=== PATIENT | male | born 1990 | race Caucasian/White ===

== ENCOUNTER 2022-04-04 10:08 | Emergency (ER) | payer SELFPAY ==
[2022-04-04 10:16] VITALS: BP 138/88; PULSE 83; RESP 18; TEMP 98
--- NOTE | 2022-04-04 11:18 | ED ---
ENT HPI - General Chief complaint: Dental/Oral Stated complaint: Ear/Tooth pain Time Seen by Provider: 04/04/22 10:21 Source: patient Mode of arrival: ambulatory Limitations: no limitations - History of Present Illness Initial comments: Patient is a 32-year-old male who presents to the emergency department with a chief complaint of tooth pain. Patient states his filling came out several months ago and did not cause him pain until today when he was chewing gum. Patient reports severe upper left tooth pain refractory to Motrin. He denies fever, chills, swelling, jaw pain, neck pain, and pain around the ear. Patient states he just got insurance and it will be active next week so he will be able to follow with a dentist. - Related Data Allergies Allergy/AdvReac Type Severity Reaction Status Date / Time No Known Allergies Allergy Verified 04/04/22 10:16 Review of Systems ROS Statement: Those systems with pertinent positive or pertinent negative responses have been documented in the HPI. ROS Other: All systems not noted in ROS Statement are negative. Past Medical History Past Medical History: No Reported History Past Surgical History: No Surgical Hx Reported Past Psychological History: No Psychological Hx Reported Smoking Status: Current some day smoker Past Alcohol Use History: Occasional Past Drug Use History: None Reported General Exam Limitations: no limitations General appearance: alert, in no apparent distress Head exam: Present: atraumatic, normocephalic, normal inspection Eye exam: Present: normal appearance, PERRL, EOMI. Absent: scleral icterus, conjunctival injection, periorbital swelling ENT exam: Present: mucous membranes moist, TM's normal bilaterally, normal external ear exam, other (dental cavity at tooth #15 without surrounding gingiva erythema or swelling) Neck exam: Present: normal inspection Respiratory exam: Present: normal lung sounds bilaterally. Absent: respiratory distress, wheezes, rales, rhonchi, stridor Cardiovascular Exam: Present: regular rate, normal rhythm, normal heart sounds. Absent: systolic murmur, diastolic murmur, rubs, gallop, clicks Neurological exam: Present: alert, oriented X3, CN II-XII intact Psychiatric exam: Present: normal affect, normal mood Skin exam: Present: warm, dry, intact, normal color. Absent: rash Course Vital Signs 04/04/22 10:14 Temperature 98.0 F Pulse Rate 83 Respiratory 18 Rate Blood Pressure 138/88 O2 Sat by Pulse 99 Oximetry Medical Decision Making - Medical Decision Making This is a 32-year-old male who presents with left upper tooth pain. Thorough history and examination were performed. There is a dental cavity at tooth #15 without surrounding gingiva erythema or swelling. At this time there does not appear to be any tooth infection however patient severe pain I'll treat patient with antibiotic as prophylaxis or possibly early infection. Patient will be sent home with [place] for severe pain. He is instructed to follow-up with his dentist as planned when his insurance is active. Patient advised to use mouthwash and to avoid chewing on the affected side. Return parameters discussed. Patient verbalizes understanding and is agreeable to this plan. Dr. Del Toro is my attending. Disposition Clinical Impression: Pain, dental Disposition: HOME SELF-CARE Condition: Good Instructions (If sedation given, give patient instructions): Toothache (ED) Additional Instructions: Please take medication as directed. You may also take anti-inflammatories such as Motrin for pain. Follow-up with your dentist as planned. Return to the emergency department if you experience new, concerning, or worsening symptoms. Is patient prescribed a controlled substance at d/c from ED?: Yes If prescribed controlled substance>3 days was MAPS reviewed?: Yes Referrals: None,Stated [Primary Care Provider] - 1-2 days Time of Disposition: 11:17
== END 2022-04-04 11:22 | disposition home or self-care (01) ==
LOC: EC 10:08
DX: K08.89 Other specified disorders of teeth and supporting structures (principal); F17.200 Nicotine dependence, unspecified, uncomplicated
CPT/HCPCS: 99282

== ENCOUNTER 2023-08-23 10:26 | Emergency (ER) | payer SELFPAY ==
--- NOTE | 2023-08-23 10:50 | ED ---
Arrhythmia/Palpitations HPI - General Chief Complaint: Arrhythmia/Palpitations Stated Complaint: Palpitations Time Seen by Provider: 08/23/23 10:35 Source: patient Mode of arrival: ambulatory Limitations: no limitations - History of Present Illness Initial Comments: The patient is a 33-year-old gentleman is otherwise healthy presents emergency room with complaints of intermittent palpitations over the last week. Patient states he has been under a lot more stress at work recently. He denies any history of anxiety. The patient states that when he feels the palpitations it causes him to feel more anxious. Patient was seen under urgent care 3 days ago for the palpitations and was given Atarax. He states that this does help the palpitations started. The patient is very anxious and concerned there is something wrong with his blood work that is causing the palpitations. He states that he has had intermittent alcohol the evening prior to the palpitations however it was never aggressive and he has since stopped drinking over the last 6 days. He states he vapes and had occasionally smoke marijuana however has not smoked marijuana in a week. He states he is eating okay and drinking a lot of water. 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 he dnies any pain or shortness of breath. he denies any swelling of the extremities, hemoptysis or fevers. - Related Data Home Medications Medication Instructions Recorded Confirmed Amoxicillin 875 mg PO Q12H 08/23/23 08/23/23 hydrOXYzine HCL [Atarax] 25 mg PO TID PRN 08/23/23 08/23/23 Allergies Allergy/AdvReac Type Severity Reaction Status Date / Time No Known Allergies Allergy Verified 08/23/23 11:18 Review of Systems ROS Statement: Those systems with pertinent positive or pertinent negative responses have been documented in the HPI. ROS Other: All systems not noted in ROS Statement are negative. Past Medical History Past Medical History: No Reported History Past Surgical History: No Surgical Hx Reported Past Psychological History: No Psychological Hx Reported Smoking Status: Current some day smoker Past Alcohol Use History: Occasional Past Drug Use History: None Reported General Exam Limitations: no limitations General appearance: alert, in no apparent distress Head exam: Present: atraumatic Eye exam: Present: normal appearance ENT exam: Present: normal exam Neck exam: Present: normal inspection Respiratory exam: Present: normal lung sounds bilaterally Cardiovascular Exam: Present: regular rate, normal rhythm GI/Abdominal exam: Present: soft Extremities exam: Present: full ROM Back exam: Present: full ROM Neurological exam: Present: alert, oriented X3, CN II-XII intact Psychiatric exam: Present: normal affect, normal mood Skin exam: Present: warm, dry Course Vital Signs 08/23/23 08/23/23 08/23/23 10:29 10:40 10:41 Temperature 98.4 F Pulse Rate 71 Pulse Rate [ 87 Operation Research Analyst ] Respiratory 18 Rate Blood Pressure 136/78 O2 Sat by Pulse Oximetry 08/23/23 08/23/23 08/23/23 10:51 11:30 12:02 Temperature 97.7 F Pulse Rate 79 68 65 Pulse Rate [ Operation Research Analyst ] Respiratory 17 17 17 Rate Blood Pressure 125/95 121/75 117/69 O2 Sat by Pulse 99 99 99 Oximetry - Reevaluation(s) Reevaluation #1: 08/23/23 1140 Patient's [facility] emergency room. Vital signs are stable. Patient's EKG is within normal limits. Labs including troponin and TSH are within normal limits. I discussed with the patient that I suspect he is having anxiety causing the palpitations. He doesn't agree with this as his symptoms improved with Atarax. He states he has probably about 18-19 tablets left at home with the Atarax that he may take as needed. I did discuss going up with the cardiology referral and PCP referral. I discussed with him that we do not start patient on routine anxiety medications however if he is getting frequent bouts of anxiety a daily medication might help prevent the generalized anxiety disorder. I discussed signs return to the emergency room. He understands agrees to this plan. EKG Findings - EKG Comments: EKG Findings:: EKG shows sinus rhythm at a rate of 86 bpm with short NM interval rate of 86 bpm, normal QT interval at 393 ms Medical Decision Making - Medical Decision Making Was pt. sent in by a medical professional or institution (ZHANG Alonso, CITY DISTRIBUTION CLERK, urgent care, hospital, or senior living...) When possible be specific @ -[No] Did you speak to anyone other than the patient for history (EMS, parent, family, police, friend...)? What history was obtained from this source @ -[No] Did you review nursing and triage notes (agree or disagree)? Why? @ -[I reviewed and agree with nursing and triage notes] Were old charts reviewed (outside hosp., previous admission, EMS record, old EKG, old radiological studies, urgent care reports/EKG's, senior living records)? Report findings @ -External medication records Differential Diagnosis (chest pain, altered mental status, abdominal pain women, abdominal pain men, vaginal bleeding, weakness, fever, dyspnea, syncope, headache, dizziness, GI bleed, back pain, seizure, CVA, palpatations, mental health, musculoskeletal)? @ -Anxiety, hyperthyroidism, SVT, dehydration, alcohol abuse EKG interpreted by me (3pts min.). @ -EKG shows sinus rhythm with short NM interval rate of 86 bpm X-rays interpreted by me (1pt min.). @ -Is negative for any pneumothorax, pneumonia, cardiomegaly or other acute changes. CT interpreted by me (1pt min.). @ -[None done] U/S interpreted by me (1pt. min.). @ -[None done] What testing was considered but not performed or refused? (CT, X-rays, U/S, labs)? Why? @ -[None] What meds were considered but not given or refused? Why? @ -[None] Did you discuss the management of the patient with other professionals (pr ofessionals i.e. , PA, CITY DISTRIBUTION CLERK, lab, RT, psych nurse, social contact worker, shoe repair supervisor, teacher, recreation officer, assistant case manager)? Give summary @ -[No] Was smoking cessation discussed for >3mins.? @ -[No] Was critical care preformed (if so, how long)? @ -[No] Were there social determinants of health that impacted care today? How? (Homelessness, low income, unemployed, alcoholism, drug addiction, tra nsportation, low edu. Level, literacy, decrease access to med. care, prison, rehab)? @ -[No] Was there de-escalation of care discussed even if they declined (Discuss DNR or withdrawal of care, Hospice)? DNR status @ -[No] What co-morbidities impacted this encounter? (DM, HTN, Smoking, COPD, CAD, Cancer, CVA, ARF, Chemo, Hep., AIDS, mental health diagnosis, sleep apnea, morbid obesity)? @ -vaping, smoking, marijuana use Was patient admitted / discharged? Hospital course, mention meds given and route, prescriptions, significant lab abnormalities, going to OR and other pertinent info. @ -The patient is well-appearing emergency room. His labs are unremarkable. T here is no EKG changes. His symptoms are consistent with anxiety reaction and they improve with Atarax. I discussed finding up with PCP for follow-up evaluation further management. I discussed signs return to the emergency room with the patient family at the bedside. They understand and agree to treatment and discharge plan. Patient's symptoms are And disposition were fully discussed with attending ED physician Dr. Flor Terrell. Patient is stable to follow up as an outpatient and does not require hospitalization at this time. Undiagnosed new problem with uncertain prognosis? @ -[No] Drug Therapy requiring intensive monitoring for toxicity (Heparin, Nitro, Insulin, Cardizem)? @ -[No] Were any procedures done? @ -[No] Diagnosis/symptom? @ -Anxiety, palpitations Acute, or Chronic, or Acute on Chronic? @ -Acute Uncomplicated (without systemic symptoms) or Complicated (systemic symptoms)? @ -Uncomplicated Side effects of treatment? @ -[No] Exacerbation, Progression, or Severe Exacerbation? @ -[No] Poses a threat to life or bodily function? How? (Chest pain, [place], [place], pneumonia, PE, COPD, DKA, ARF, appy, cholecystitis, CVA, Diverticulitis, Homicidal, Suicidal, threat to staff... and all critical care pts) @ -[No] - Lab Data Result diagrams: 08/23/23 10:51 08/23/23 10:51 Lab Results 08/23/23 08/23/23 08/23/23 Range/Units 10:51 10:51 10:51 WBC 5.5 (3.8-10.6) k/uL RBC 4.99 (4.30-5.90) m/uL Hgb 16.2 (13.0-17.5) gm/dL Hct 47.1 (39.0-53.0) % MCV 94.5 (80.0-100.0) fL MCH 32.5 (25.0-35.0) pg MCHC 34.4 (31.0-37.0) g/dL RDW 11.9 (11.5-15.5) % Plt Count 216 (150-450) k/uL MPV 7.8 Neutrophils % 46 % Lymphocytes % 44 % Monocytes % 5 % Eosinophils % 2 % Basophils % 1 % Neutrophils # 2.5 (1.3-7.7) k/uL Lymphocytes # 2.4 (1.0-4.8) k/uL Monocytes # 0.3 (0-1.0) k/uL Eosinophils # 0.1 (0-0.7) k/uL Basophils # 0.0 (0-0.2) k/uL Sodium 138 (137-145) mmol/L Potassium 4.1 (3.5-5.1) mmol/L Chloride 105 (98-107) mmol/L Carbon Dioxide 25 (22-30) mmol/L Anion Gap 8 mmol/L BUN 17 (9-20) mg/dL Creatinine 0.91 (0.66-1.25) mg/dL Est GFR (CKD-EPI)AfAm >90 (>60 ml/min/1.73 sqM) Est GFR (CKD-EPI)NonAf >90 (>60 ml/min/1.73 sqM) Glucose 97 (74-99) mg/dL Calcium 9.6 (8.4-10.2) mg/dL Magnesium 2.1 (1.6-2.3) mg/dL Total Bilirubin 0.5 (0.2-1.3) mg/dL AST 54 (17-59) U/L ALT 69 H (4-49) U/L Alkaline Phosphatase 92 (38-126) U/L Troponin I <0.012 (0.000-0.034) ng/mL Total Protein 7.5 (6.3-8.2) g/dL Albumin 4.6 (3.5-5.0) g/dL TSH 0.574 (0.465-4.680) mIU/L - EKG Data -: EKG Interpreted by Mi - Radiology Data Radiology results: report reviewed, image reviewed Disposition Clinical Impression: Palpitations, Anxiety Disposition: HOME SELF-CARE Condition: Good Instructions (If sedation given, give patient instructions): Generalized Anxiety Disorder (ED), Anxiety (ED), Panic Attack (ED) Is patient prescribed a controlled substance at d/c from ED?: No Referrals: None,Stated [Primary Care Provider] - 1-2 days Murtaza Huffman DO [STAFF PHYSICIAN] - 1-2 days Gustavo Jefferson MD [STAFF PHYSICIAN] - 1-2 days Ed Isidro MD [REFERRING] - 1-2 days Juventino Capellan MD [STAFF PHYSICIAN] - 1-2 days Forms: PH Area PCPs Time of Disposition: 12:34
[2023-08-23 11:06] VITALS: RESP 17
[2023-08-23 11:06] LABS: Basophils % (A) 1 %; Eosinophils # (A) 0.1 k/uL (0-0.7); Eosinophils % (A) 2 %; HCT 47.1 % (39.0-53.0); HGB 16.2 gm/dL (13.0-17.5); Lymphocytes # (A) 2.4 k/uL (1.0-4.8); Lymphocytes % (A) 44 %; MCH 32.5 pg (25.0-35.0); MCHC 34.4 g/dL (31.0-37.0); MCV 94.5 fL (80.0-100.0); Mean Platelet Volume 7.8; Monocytes # (A) 0.3 k/uL (0-1.0); Monocytes % (A) 5 %; Neutrophils # (A) 2.5 k/uL (1.3-7.7); Neutrophils % (A) 46 %; Platelet Count 216 k/uL (150-450); RBC 4.99 m/uL (4.30-5.90); RDW 11.9 % (11.5-15.5); WBC 5.5 k/uL (3.8-10.6)
--- NOTE | 2023-08-23 11:10 | XR ---
EXAMINATION TYPE: XR chest 2V DATE OF EXAM: 08/23/2023 COMPARISON: NONE HISTORY: Palpitations. TECHNIQUE: Frontal and lateral views of the chest are obtained. FINDINGS: There is no focal air space opacity, pleural effusion, or pneumothorax seen. The cardiac silhouette size is within normal limits. The osseous structures are intact. IMPRESSION: No acute cardiopulmonary process.
[2023-08-23 11:21] LABS: ALT 69 U/L (4-49); AST 54 U/L (17-59); African American GFR (CKD) >90 (>60 ml/min/1.73 sqM); Albumin 4.6 g/dL (3.5-5.0); Alkaline Phosphatase 92 U/L (38-126); Anion Gap 8 mmol/L; Blood Urea Nitrogen 17 mg/dL (9-20); Calcium 9.6 mg/dL (8.4-10.2); Carbon Dioxide 25 mmol/L (22-30); Chloride 105 mmol/L (98-107); Glucose 97 mg/dL (74-99); Magnesium 2.1 mg/dL (1.6-2.3); Non-African American GFR(CKD) >90 (>60 ml/min/1.73 sqM); Potassium 4.1 mmol/L (3.5-5.1); Sodium 138 mmol/L (137-145); Total Bilirubin 0.5 mg/dL (0.2-1.3); Total Protein 7.5 g/dL (6.3-8.2)
[2023-08-23 12:07] VITALS: BP 117/69; PULSE 65; TEMP 97.7
== END 2023-08-23 13:04 | disposition home or self-care (01) ==
LOC: EC 10:26
DX: F41.9 Anxiety disorder, unspecified (principal); F17.200 Nicotine dependence, unspecified, uncomplicated
CPT/HCPCS: 36415; 71046; 80053; 83735; 84443; 84484; 85025; 93005; 99285